=== PATIENT | female | born 1970 | race Two or more races ===

== ENCOUNTER 2016-12-21 14:51 | Emergency (ER) | payer SELFPAY ==
[~2016-12-21] VITALS: Ht 165.1 cm; Wt 73.0 kg
[2016-12-21] MEDS ORDERED: IBUPROFEN 600MG TABLET PO ONE (20:45)
[2016-12-21 20:55] VITALS: BP 128/75
== END 2016-12-21 21:40 | disposition home or self-care (01) ==
LOC: ER 20:22
DX: H60.92 Unspecified otitis externa, left ear (principal)
CPT/HCPCS: 99283